=== PATIENT | female | born 1990 | race Caucasian/White ===

== ENCOUNTER 2017-01-21 12:29 | Emergency (ER) | payer MEDICAID, OTHER ==
[2017-01-21 12:29] VITALS: BMI 21.9
[2017-01-21 12:43] VITALS: BP 133/79; PULSE 83; RESP 16; TEMP 98.6; O2SAT 99
[2017-01-21] MEDS ORDERED: Lidocaine 1% Inj (20ml) ONE (13:46)
--- NOTE | 2017-01-21 14:10 | ED PDOC ---
Upper Extremity Pain/Injury Time Seen by Provider: 01/21/17 12:41 Chief Complaint (Nursing): Upper Extremity Problem/Injury Chief Complaint (Provider): Laceration to left 4th digit History Per: Patient History/Exam Limitations: no limitations Onset/Duration Of Symptoms: Mins Current Symptoms Are (Timing): Still Present Quality: "Pain" Additional Complaint(s): Nicolasa Patino, a 26 year old female(right hand dominant), with a past medial history of anxiety and asthma presents to the ED for an injury to her left hand. The patient reports that while at work she was cutting chicken and she slipped and cut her finger with the knife. Patient is unsure of her last tetanus vaccine. Allergic to cinnamon Past Medical History Reviewed: Historical Data, Nursing Documentation, Vital Signs Vital Signs: Last Vital Signs Temp 98.6 F 01/21/17 12:39 Pulse 83 01/21/17 12:39 Resp 16 01/21/17 12:39 BP 133/79 01/21/17 12:39 Pulse Ox 99 01/21/17 12:39 - Medical History PMH: Anxiety, Asthma, Bipolar Disorder, Depression Denies: Chronic Kidney Disease - Surgical History Surgical History: No Surg Hx - Family History Family History: States: Unknown Family Hx - Social History Current smoker - smoking cessation education provided: Yes (Heavy smoker >10 cigarettes daily) Alcohol: Social Drugs: Other ("yes whenever I get my hands on it") - Immunization History Hx Tetanus Toxoid Vaccination: No Hx Influenza Vaccination: No Hx Pneumococcal Vaccination: No - Home Medications Home Medications: Ambulatory Orders Medication Instructions Recorded Famotidine [Pepcid] 20 mg PO HS #20 tab 08/30/15 Ibuprofen [Motrin] 600 mg PO Q6H PRN #20 tab 08/30/15 - Allergies Allergies/Adverse Reactions: Allergies Allergy/AdvReac Type Severity Reaction Status Date / Time cinnamon Allergy ANAPHYLAXIS Verified 08/30/15 17:02 Review of Systems ROS Statement: Except As Marked, All Systems Reviewed And Found Negative Musculoskeletal: Positive for: Hand Pain (laceration ot left 4th digit) Physical Exam - Reviewed Nursing Documentation Reviewed: Yes Vital Signs Reviewed: Yes - Physical Exam Appears: Positive for: Non-toxic, No Acute Distress Head Exam: Positive for: ATRAUMATIC, NORMAL INSPECTION, NORMOCEPHALIC Skin: Positive for: Normal Color, Warm, Dry. Negative for: Rash Eye Exam: Positive for: Normal appearance, EOMI, PERRL. Negative for: Nystagmus Extremity: Positive for: Normal ROM (normal ROM ot left 4th digit), Other (2cm laceration ot left 4th digit finger tip pulp; No active bleeding.). Negative for: Deformity, Swelling Neurologic/Psych: Positive for: Alert, Oriented, Gait - ECG O2 Sat by Pulse Oximetry: 99 (RA) Pulse Ox Interpretation: Normal Medical Decision Making Medical Decision Makin Initial Impression 26 y/o female presenting with laceration to left 3rd digit Initial Plan: * Sutures placed by senior medical writer, see procedure note. Wound care discussed Scribe Attestation Documented by Laura Arizmendi acting as a scribe for Nichole Wang PA-C. Scribe Attestation All medical record entries made by the Scribe were at my direction and personally dictated by me. I have reviewed the chart and agree that the record accurately reflects my personal performance of the history, physical exam, medical decision making, and the department course for this patient. I have also personally directed, reviewed, and agree with the discharge instructions and disposition. Disposition - Clinical Impression Clinical Impression: Laceration - Patient ED Disposition Is Patient to be Admitted: No - Disposition Disposition: Routine/Home Disposition Time: 14:00 Condition: STABLE Instructions: Care For Your Absorbable Stitches (ED) Forms: [employer] (Frisian) - POA Present On Arrival: None Laceration - Laceration Repair laceration Wound Length (In cm): 2 Description Of Wound: Linear Wound Cleansed With: Sterile Saline Anesthesia: Lidocaine 1% Wound Examination: Irrigated With Saline Wound Closure: Suture Suture Technique And Material Used: Vicryl (4-0) Wound Complexity: Simple
== END 2017-01-21 14:58 | disposition home or self-care (01) ==
LOC: H.ER 12:29
DX: S61.215A Laceration without foreign body of left ring finger without damage to nail, initial encounter (principal); W26.0XXA Contact with knife, initial encounter; Y99.0 Civilian activity done for income or pay; F31.9 Bipolar disorder, unspecified; F41.9 Anxiety disorder, unspecified; J45.909 Unspecified asthma, uncomplicated